=== PATIENT | male | born 1990 | race Two or more races ===

== ENCOUNTER 2022-12-21 23:15 | Emergency (ER) | payer SELFPAY ==
[~2022-12-21] VITALS: Ht 177.8 cm; Wt 106.0 kg
[2022-12-21 23:29] VITALS: BP 138/84; PULSE 99; RESP 18; TEMP 97.2; O2SAT 97
== END 2022-12-23 00:15 | disposition left against medical advice (07) ==
LOC: ER 23:23
DX: Z53.21 Procedure and treatment not carried out due to patient leaving prior to being seen by health care provider (principal)
CPT/HCPCS: 99281; 99283